=== PATIENT | female | born 1980 | race Hispanic/Latino ===

== ENCOUNTER 2017-05-07 15:32 | Emergency (ER) | payer OTHER ==
[~2017-05-07] VITALS: Ht 162.6 cm; Wt 70.0 kg
[~2017-05-07 15:32] MED LIST: BUTALBITAL/ACETAMIN1 PO; CALNA PO; FERR SULFATE325 MG PO; IMITREX20 MG/ACT; IMITREX25 MG PO; IMITREX50 M1 OR; NAPROSYN500 MG PO; NO HOME MEDS
[2017-05-07 16:24] LABS: URINE BILIRUBIN - DIPSTICK NEGATIVE (NEGATIVE); URINE BLOOD DIPSTICK NEGATIVE (NEGATIVE); URINE COLOR YELLOW; URINE GLUCOSE - DIPSTICK NEGATIVE (NEGATIVE); URINE KETONE NEGATIVE (NEGATIVE); URINE NITRITE - DIPSTICK NEGATIVE (Negative); URINE PROTEIN - DIPSTICK NEGATIVE (NEG-TRACE); URINE SPECIFIC GRAVITY >=1.030
[2017-05-07 16:28] LABS: URINE CLARITY CLEAR; URINE LEUK ESTERASE SMALL (NEGATIVE)
[2017-05-07 16:30] LABS: IMMATURE GRANULOCYTES 0.4 % (0.0-1.0); MEAN CORPUSCULAR HGB 29.3 pG CALC (26.0-32.0); MEAN CORPUSCULAR HGB CONC 32.8 g/L CALC (32.0-36.0); NEUT# 8.54 thou/uL (2.00-7.15); RED BLOOD COUNT 4.61 mill/uL (4.20-5.60); RED CELL DISTRI WIDTH 12.9 % (11.5-15.5)
[2017-05-07 16:32] LABS: HEMATOCRIT 41.1 % (37.0-47.0); HEMOGLOBIN 13.5 g/dl (12.0-16.0); MEAN CELL VOLUME 89.2 fL CALC (80.0-100.0)
[2017-05-07 16:37] LABS: URINE MUCUS FEW hpf (NONE-FEW); URINE SQUAMOUS EPITHELIAL CELL FEW EPI/hpf (0-FEW)
[2017-05-07 16:49] LABS: BUN 12 mg/dL (7-17); BUN/CREATININE RATIO 16 (12-20 (CALC)); CARBON DIOXIDE 23 mmol/l (22-30); CHLORIDE 105 mmol/l (95-108); CREATININE 0.8 mg/dL (0.5-1.0); GFR > 60 ML/MIN (>=60 (CALC)); GFR FOR AFR.AMER. > 60 ML/MIN (>=60 (CALC))
[2017-05-07 16:56] LABS: ANION GAP 18 (6-22 (CALC)); SODIUM 142 mmol/l (137-146)
[2017-05-07] MEDS ORDERED: PREDNISONE50 MG PO (18:20)
[2017-05-07] MEDS ORDERED: BENADRYL25 M1 PO (18:20)
[2017-05-07] MEDS ORDERED: EPIPEN 2-P0.3 MG/0.3 IM (18:20)
[2017-05-07] MEDS ORDERED: CIPROFLOXACN500 MG PO (20:39)
[2017-05-07 20:47] VITALS: BP 128/79
== END 2017-05-07 20:56 | disposition home or self-care (01) | DRG 916 ==
LOC: ED 15:32
PROVIDERS: Family Medicine
DX: T78.2XXA Anaphylactic shock, unspecified, initial encounter (principal); L50.0 Allergic urticaria; N39.0 Urinary tract infection, site not specified

== ENCOUNTER 2018-03-05 22:01 | Emergency (ER) | payer OTHER ==
[~2018-03-05] VITALS: Ht 162.6 cm; Wt 82.7 kg
[~2018-03-05 22:01] MED LIST changes: +BENADRYL25 M1 PO; +CIPROFLOXACN500 MG PO; +EPIPEN 2-P0.3 MG/0.3 IM; +PREDNISONE50 MG PO
[2018-03-05 22:54] LABS: URINE BILIRUBIN - DIPSTICK NEGATIVE (NEGATIVE); URINE BLOOD DIPSTICK MODERATE (NEGATIVE); URINE COLOR YELLOW; URINE GLUCOSE - DIPSTICK NEGATIVE (NEGATIVE); URINE KETONE TRACE mg/dL (NEGATIVE); URINE LEUK ESTERASE NEGATIVE (NEGATIVE); URINE NITRITE - DIPSTICK NEGATIVE (Negative); URINE PROTEIN - DIPSTICK 30 mg/dL (NEG-TRACE); URINE SPECIFIC GRAVITY >=1.030; URINE UROBILINOGEN - DIPSTICK 0.2 E.U./dL (0.2)
[2018-03-05 23:04] LABS: URINE SQUAMOUS EPITHELIAL CELL RARE EPI/hpf (0-FEW); URINE WBC 0-2 WBC/hpf (0-5)
[2018-03-05 23:05] LABS: URINE BACTERIA FEW hpf; URINE CALCIUM OXALATE CRYSTALS MODERATE lpf
[2018-03-05] MEDS ORDERED: MACROBID100 MG PO (23:10)
[2018-03-05 23:35] VITALS: BP 108/59
== END 2018-03-05 23:35 | disposition home or self-care (01) ==
LOC: ED 22:01
PROVIDERS: Family Medicine
DX: O23.12 Infections of bladder in pregnancy, second trimester (principal); N30.00 Acute cystitis without hematuria; R30.0 Dysuria; R35.0 Frequency of micturition; R39.15 Urgency of urination; Z3A.26 26 weeks gestation of pregnancy

== ENCOUNTER 2021-09-05 11:38 | Emergency (ER) | payer MEDICAID ==
[~2021-09-05] VITALS: Ht 162.6 cm; Wt 86.0 kg
[~2021-09-05 11:38] MED LIST changes: +MACROBID100 MG PO
[2021-09-05] MEDS ORDERED: NAPROXEN500 MG PO (13:14)
[2021-09-05 13:33] VITALS: BP 129/63
== END 2021-09-05 13:33 | disposition home or self-care (01) ==
LOC: ED 11:38
DX: S93.402A Sprain of unspecified ligament of left ankle, initial encounter (principal); X50.0XXA Overexertion from strenuous movement or load, initial encounter; Y92.008 Other place in unspecified non-institutional (private) residence as the place of occurrence of the external cause

== ENCOUNTER 2023-09-12 22:44 | Emergency (ER) | payer OTHER ==
[~2023-09-12] VITALS: Ht 162.6 cm; Wt 75.0 kg
[~2023-09-12 22:44] MED LIST changes: +NAPROXEN500 MG PO
[2023-09-12] MEDS ORDERED: Diph, Acellular Pertussis, Tet 0.5 ML/VIAL (Tdap) SDV IM ONE (22:50)
[2023-09-12] MEDS ORDERED: SULFAMETHOXAZOLE W/TRIMETHOPRI 1 COMBO TAB PO ONE (22:50)
[2023-09-12] MEDS ORDERED: ACETAMINOPHEN 500 MG TAB PO ONE (22:50)
[2023-09-12] MEDS ORDERED: KETOROLAC TROMETHAMINE 30 MG/ML SDV IM ONE (22:50)
[2023-09-12] MEDS ORDERED: BACTRIM DS1 TAB PO (23:28)
[2023-09-12] MEDS ORDERED: NEOMYCIN-BACITRACIN-POLYMYXIN 0.5 GM/PAK PAK TOP ONE (23:30)
[2023-09-13] VITALS: BP 134/78
== END 2023-09-13 00:50 | disposition home or self-care (01) | DRG 563 ==
LOC: ED 22:44
DX: S92.422A Displaced fracture of distal phalanx of left great toe, initial encounter for closed fracture (principal); S92.532A Displaced fracture of distal phalanx of left lesser toe(s), initial encounter for closed fracture; S91.202A Unspecified open wound of left great toe with damage to nail, initial encounter; S90.415A Abrasion, left lesser toe(s), initial encounter; W31.82XA Contact with other commercial machinery, initial encounter; Y92.89 Other specified places as the place of occurrence of the external cause; Y99.0 Civilian activity done for income or pay